=== PATIENT | male | born 1950 | race Caucasian/White ===

== ENCOUNTER → 2017-10-01 | Outpatient (CLI) | payer MEDICARE, OTHER ==
--- NOTE | 2017-10-03 09:53 | RADIOLOGY REPORT (SQ) ---
EXAM DESCRIPTION: MRI LT UPPER JOINT COMBO COMPLETED DATE/TIME: 10/01/2017 3:40 pm REASON FOR STUDY: PAIN IN LEFT SHOULDER S46.912A STRAIN UNSP MUSC/FASC/TEND AT SHLDR/UP ARM, LEFT A R M25.512 PAIN IN LEFT SHOULDER COMPARISON: None. TECHNIQUE: Multiplanar fat and fluid sensitive sequences precontrast including T1, T2 fat saturated or STIR. Initially, standard shoulder imaging was performed. Due to the presence of a mass on initi al review, the patient is brought back for further imaging to extend inferiorly along the left chest wall and proximal arm. This includes post contrast T1 fat saturated sequences after IV gadolinium ad ministration. CONTRAST TYPE AND DOSE: 15 mL Prohance. RENAL FUNCTION: GFR > 60. LIMITATIONS: None. FINDINGS: MASS SIGNAL CHARACTERISTICS: LOCATION: Along the lateral chest wall involving the distal pectoralis muscle. The lesion looks cent ered along the pectoralis/subcutaneous fat interface. The lesion abuts but does not clearly invade t he deltoid and biceps muscles and remains adjacent and medial to the cephalic vein. SIGNAL CHARACTERISTICS AND ENHANCEMENT PATTERN: Roughly ovoid configuration with internal low T1 damian ons. Septated appearance with heterogeneous but diffuse enhancement in the mass. MEASUREMENTS: Grossly 3.8 x 4.6 cm AP by transverse. 5.1 cm craniocaudal. MARROW SIGNAL IN ADJACENT BONES: Normal as assessed. OTHER SIGNIFICANT BONE, JOINT OR SOFT TISSUE FINDINGS: Mild AC arthropathy. Probable slap tear. Cuf f tendinosis. No full-thickness tear. Trace subcoracoid bursitis. IMPRESSION: 1. Heterogeneous mass along the distal pectoralis muscle with suspicious enhancement. W hile hematoma related to injury to the distal pectoralis would normally be in the differential, the l esion is worrisome for malignancy, possibly sarcoma. Further oncologic orthopedic management recomme nded. TECHNICAL DOCUMENTATION: JOB ID: [id number] [employer]- All Rights Reserved Reading location - IP/workstation name: [email or web address]
== END ==
LOC: RAD 12:08
PROVIDERS: ATTEND Orthopaedic Surgery
DX: S46.912A Strain of unspecified muscle, fascia and tendon at shoulder and upper arm level, left arm, initial encounter (principal); M25.512 Pain in left shoulder; X58.XXXA Exposure to other specified factors, initial encounter; Y93.9 Activity, unspecified; Y92.9 Unspecified place or not applicable
CPT/HCPCS: 82565; 73223; A9576

== ENCOUNTER 2017-10-11 10:03 | Day surgery (SDC) | payer MEDICARE, OTHER ==
[~2017-10-11 10:03] MED LIST: CEFAZOLIN 2 GM/D5W RTU 2 GM/50 ML RTUPB IV SCH
[2017-10-11 10:57] LABS: APPEARANCE,URINE SLIGHTLY-CLOUDY; BILIRUBIN,URINE NEGATIVE (NEGATIVE); COLOR,URINE YELLOW; GLUCOSE, URINE NEGATIVE (NEGATIVE); KETONES,URINE NEGATIVE (NEGATIVE); LEUKOCYTE ESTERASE,URINE NEGATIVE (NEGATIVE); NITRITE,URINE NEGATIVE (NEGATIVE); PROTEIN,URINE NEGATIVE (NEGATIVE); URINE SPECIFIC GRAVITY 1.014; UROBILINOGEN,URINE NEGATIVE mg/dL (<2.0)
[2017-10-11 11:09] LABS: HEMATOCRIT 46.5 % (37.9-51.0); HEMOGLOBIN 16.3 g/dL (13.5-17.0); MEAN CORPUSCULAR HEMOGLOBIN 32.6 pg (27.0-33.4); MEAN CORPUSCULAR VOLUME 93 fl (80-97); PLATELET COUNT 201 10^3/uL (150-450); RED BLOOD COUNT 4.98 10^6/uL (4.35-5.55); RED CELL DISTRIBUTION WIDTH 13.6 % (11.5-14.0); WHITE BLOOD COUNT 11.1 10^3/uL (4.0-10.5)
[2017-10-11 11:20] LABS: ANION GAP 13 (5-19); BLOOD UREA NITROGEN 14 mg/dL (7-20); CALCIUM 9.9 mg/dL (8.4-10.2); CARBON DIOXIDE 26 mmol/L (22-30); CHLORIDE 101 mmol/L (98-107); GLUCOSE 101 mg/dL (75-110); POTASSIUM 3.9 mmol/L (3.6-5.0); SODIUM 139.6 mmol/L (137-145)
--- NOTE | 2017-10-11 11:32 | RADIOLOGY REPORT (SQ) ---
EXAM DESCRIPTION: CHEST SINGLE VIEW COMPLETED DATE/TIME: 10/11/2017 10:59 am REASON FOR STUDY: preop COMPARISON: None. TECHNICAL DOCUMENTATION: JOB ID: [id number] Reading location - IP/workstation name: [email or web address]
[2017-10-11] MEDS ORDERED: ALBUTEROL SULFATE 0.083% NEB 2.5 MG/3 ML AMPUL NEB ONE (11:36)
[2017-10-11] MEDS ORDERED: BACITRACIN INJ 50,000 UNIT VIAL ONE (11:37)
[2017-10-11] MEDS ORDERED: POLYMYXIN B SULFATE INJ 500000 UNIT VIAL ONE (11:37)
[2017-10-11 11:57] LABS: ERYTHROCYTE SEDIMENTATION RATE 7 mm/hr (0-20)
[2017-10-11] MEDS ORDERED: HYDROMORPHONE HCL INJ/PF 2 MG/ML AMPULE ONE (12:16)
[2017-10-11] MEDS ORDERED: FENTANYL CITRATE INJ/PF 100 MCG/2 ML AMPUL ONE (12:17)
[2017-10-11] MEDS ORDERED: ACETAMINOPHEN 1,000 MG/100 ML RTUPB IV ONE (12:17)
[2017-10-11] MEDS ORDERED: PROPOFOL INJ 200 MG/20 ML VIAL IV ONE (12:17)
[2017-10-11] MEDS ORDERED: MIDAZOLAM 2 MG/2 ML INJ ONE (12:17)
[2017-10-11] MEDS ORDERED: LIDOCAINE 2% INJ-PF (20 MG/ML) 10 ML AMPUL ONE (12:29)
[2017-10-11] MEDS ORDERED: BUPIVACAINE HCL 0.5%-EPI 1:200000 INJ/PF 30 ML VIAL ONE (13:33)
--- NOTE | 2017-10-11 13:43 | Operative Report ---
Operative Report DATE OF SURGERY: 10/11/17 PREOPERATIVE DIAGNOSIS: Left pectoral soft tissue mass OPERATION: Resection left pectoral soft tissue mass SURGEON: CASANDRA LEIVA ANESTHESIA: GA TISSUE REMOVED OR ALTERED: Soft tissue mass to pathology, suture proximal medial ESTIMATED BLOOD LOSS: 50 PROCEDURE: With the patient supine Afrin table the left upper extremity forequarter prepped and draped in sterile fashion. An incision was made along the inferior aspect of the left pectoral muscle adjacent to the axilla. Sharp dissection was carried incision down to the perimuscular fascia. The perimuscular fascia is maintained as part of the specimen. The soft tissue dissection proceeds medially along the inferior aspect of the pectoralis major and then posteriorly. Its transected at the pectoralis insertion of the humerus. Medially its transected and what appears to be normal muscle which is proximal medial to the mass. Lastly the inferior aspect is resected through muscle tissue. The specimen is marked and sent to pathology for frozen section. The wound is irrigated with bulb lavage. Hemostasis obtained with electrocautery. The wound is closed in layers with interrupted Vicryl followed by sanchez. A sterile compressive dressings applied and patient's return to PACU in satisfactory condition.
[2017-10-11] MEDS ORDERED: MEPERIDINE HCL/PF INJ 25 MG/1 ML DISP.SYRIN IV PRN (13:46)
[2017-10-11] MEDS ORDERED: OXYCODONE-ACETAMINOPHEN 5-325 MG TABLET PO PRN ×2 (13:46)
[2017-10-11] MEDS ORDERED: FENTANYL CITRATE INJ/PF 100 MCG/2 ML AMPUL IV PRN ×3 (13:46)
[2017-10-11] MEDS ORDERED: DIPHENHYDRAMINE HCL 50 MG/ML VIAL IV PRN (13:46)
[2017-10-11] MEDS ORDERED: PROMETHAZINE HCL INJ 25 MG/1 ML VIAL IV PRN ×2 (13:46)
--- NOTE | 2017-10-11 13:47 | Discharge Summary ---
Discharge Summary (SDC) - Discharge Final Diagnosis: Left pectoral soft tissue mass Date of Surgery: 10/11/17 Discharge Date: 10/11/17 Condition: Good Treatment or Instructions: Use of left upper extremity as tolerated Prescriptions: Oxycodone HCl [Oxy-Ir 5 mg Tablet] 5 mg PO Q6HP PRN #40 tab PRN Reason: Referrals: ROSANNE MICHELLE MD [Primary Care Provider] - Discharge Diet: As Tolerated, Regular Respiratory Treatments at Home: Deep Breathing/Coughing Discharge Activity: Balance Activity w/Rest, No tub bath Home Care Assistance: None Needed Report the Following to Your Physician Immediately: Shortness of Breath, Fever over 101 Degrees, Drainage-Foul Smelling
[2017-10-11 16:53] VITALS: BP 153/78
[2017-10-11] MEDS ORDERED: ROCURONIUM BROMIDE INJ 50 MG/5 ML VIAL IV ONE (21:21)
[2017-10-11] MEDS ORDERED: GLYCOPYRROLATE 1 MG/5 ML SYRINGE ONE (21:21)
[2017-10-11] MEDS ORDERED: SUCCINYLCHOLINE CHLORIDE INJ 200 MG/10 ML VIAL ONE (21:21)
[2017-10-11] MEDS ORDERED: NEOSTIGMINE METHYLSULFATE 10 MG/10 ML VIAL ONE (21:21)
--- NOTE | 2017-10-11 22:07 | EKG REPORT ---
SEVERITY:- NORMAL ECG - SINUS RHYTHM : Confirmed by: Kym Car 11-Oct-2017 22:06:00
== END 2017-10-11 16:35 | disposition home or self-care (01) ==
LOC: OROUT 10:03
PROVIDERS: ATTEND Orthopaedic Surgery
DX: C49.3 Malignant neoplasm of connective and soft tissue of thorax (principal); R22.32 Localized swelling, mass and lump, left upper limb; F17.210 Nicotine dependence, cigarettes, uncomplicated; I10 Essential (primary) hypertension; E11.9 Type 2 diabetes mellitus without complications; Z79.899 Other long term (current) drug therapy; Z79.82 Long term (current) use of aspirin; Z79.84 Long term (current) use of oral hypoglycemic drugs; Z79.51 Long term (current) use of inhaled steroids
CPT/HCPCS: 36415; 85027; 85652; 80048; 81001; 83036; 88307 ×2; 71045; 93005; 93010; 94640; 21554; J2250; J3490 ×4; J3010; J0330; J2704; A9270; J0690; J0131; 400; J1170

== ENCOUNTER 2019-04-10 05:25 | Day surgery (SDC) | payer MEDICARE, OTHER ==
--- NOTE | 2019-04-03 10:05 | RADIOLOGY REPORT (SQ) ---
EXAM DESCRIPTION: CHEST PA/LATERAL COMPLETED DATE/TIME: 04/03/2019 9:48 am REASON FOR STUDY: PRE-OP COMPARISON: None. EXAM PARAMETERS: NUMBER OF VIEWS: two views TECHNIQUE: Digital Frontal and Lateral radiographic views of the chest acquired. RADIATION DOSE: NA LIMITATIONS: none FINDINGS: LUNGS AND PLEURA: No opacities, masses or pneumothorax. No pleural effusion. MEDIASTINUM AND HILAR STRUCTURES: No masses or contour abnormalities. HEART AND VASCULAR STRUCTURES: Heart normal size. No evidence for failure. BONES: No acute findings. HARDWARE: None in the chest. OTHER: No other significant finding. IMPRESSION: NO SIGNIFICANT RADIOGRAPHIC FINDING IN THE CHEST. TECHNICAL DOCUMENTATION: JOB ID: [id number] [employer]- All Rights Reserved Reading location - IP/workstation name: [email or web address]
[2019-04-03 10:15] LABS: ABSOLUTE EOSINOPHILS # (AUTO) 0.4 10^3/uL (0.0-0.6); ABSOLUTE LYMPHOCYTES (AUTO) 0.8 10^3/uL (0.5-4.7); ABSOLUTE MONOCYTES (AUTO) 0.6 10^3/uL (0.1-1.4); ABSOLUTE NEUT (AUTO) 4.6 10^3/uL (1.7-8.2); BASOPHILS % (AUTO) 0.7 % (0-2); EOSINOPHILS % (AUTO) 6.4 % (0-6); HEMATOCRIT 46.7 % (37.9-51.0); HEMOGLOBIN 16.4 g/dL (13.5-17.0); LYMPHOCYTES % (AUTO) 12.3 % (13-45); MEAN CORPUSCULAR HEMOGLOBIN 33.7 pg (27.0-33.4); MEAN CORPUSCULAR HGB CONC 35.1 g/dL (32.0-36.0); MEAN CORPUSCULAR VOLUME 96 fl (80-97); MONOCYTES % (AUTO) 9.3 % (3-13); PLATELET COUNT 159 10^3/uL (150-450); RED BLOOD COUNT 4.85 10^6/uL (4.35-5.55); RED CELL DISTRIBUTION WIDTH 14.1 % (11.5-14.0); SEGMENTED NEUTROPHILS % (AUTO) 71.3 % (42-78); TOTAL CELLS COUNTED % (AUTO) 100 %; WHITE BLOOD COUNT 6.5 10^3/uL (4.0-10.5)
[2019-04-03 10:39] LABS: ANION GAP 14 (5-19); BLOOD UREA NITROGEN 15 mg/dL (7-20); CALCIUM 10.1 mg/dL (8.4-10.2); CARBON DIOXIDE 26 mmol/L (22-30); CHLORIDE 92 mmol/L (98-107); GLUCOSE 89 mg/dL (75-110)
--- NOTE | 2019-04-03 13:29 | EKG REPORT ---
SEVERITY:- NORMAL ECG - SINUS RHYTHM : Confirmed by: Chapincito Guillaume MD 03-Apr-2019 13:28:26
[~2019-04-10 05:25] MED LIST changes: -CEFAZOLIN 2 GM/D5W RTU 2 GM/50 ML RTUPB IV SCH; +CEFAZOLIN SODIUM 2 GM in DEXTROSE 5%-WATER 100 ML IV PRN; +LACTATED RINGERS 1000 ML IV PRN; +LIDOCAINE 0.5% INJ-PF (5 MG/ML) 50 ML SDV SUBCUT PRN
[2019-04-10 06:46] LABS: POTASSIUM 3.6 mmol/L (3.6-5.0)
[2019-04-10] MEDS ORDERED: MIDAZOLAM 2 MG/2 ML INJ ONE (06:59)
[2019-04-10] MEDS ORDERED: FENTANYL CITRATE INJ/PF 100 MCG/2 ML AMPUL ONE (06:59)
[2019-04-10] MEDS ORDERED: PROPOFOL INJ 200 MG/20 ML VIAL IV ONE (06:59)
[2019-04-10] MEDS ORDERED: LIDOCAINE 2% INJ (20 MG/ML) 20 ML MDV ONE (07:00)
[2019-04-10] MEDS ORDERED: LIDOCAINE 1%/EPINEPHRINE INJ 20 ML VIAL ONE (07:18)
[2019-04-10] MEDS ORDERED: BUPIVACAINE HCL 0.25 % INJ/PF (2.5 MG/1 ML) 30 ML VIAL ONE (07:18)
[2019-04-10] MEDS ORDERED: TRANEXAMIC ACID INJ/PF 1,000 MG/10 ML SDV ONE ×2 (07:52→09:42)
[2019-04-10] MEDS: BUPIVACAINE INJ/PF LIPOSOME/PF 266 MG/20 ML SDV ONE ×2 (08:00→08:10)
[2019-04-10] MEDS ORDERED: ONDANSETRON HCL INJ/PF 4 MG/2 ML SDV IV PRN (08:01)
[2019-04-10] MEDS ORDERED: PROMETHAZINE HCL INJ 25 MG/1 ML VIAL IV PRN (08:01)
[2019-04-10] MEDS ORDERED: MEPERIDINE HCL/PF INJ 25 MG/1 ML DISP.SYRIN IV PRN (08:01)
[2019-04-10] MEDS ORDERED: MORPHINE SULFATE 10 MG/ML INJ IV PRN (08:01)
[2019-04-10] MEDS ORDERED: DIPHENHYDRAMINE HCL 50 MG/ML VIAL IV PRN (08:01)
[2019-04-10] MEDS ORDERED: FENTANYL CITRATE INJ/PF 100 MCG/2 ML AMPUL IV PRN ×3 (08:01)
[2019-04-10] MEDS ORDERED: OXYCODONE-ACETAMINOPHEN 5-325 MG TABLET PO PRN ×3 (08:01→08:45)
--- NOTE | 2019-04-10 08:22 | Operative Report ---
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 The previous incision is marked. The incision line is an elliptical incision that extends 2 cm distal and 2 cm proximal to the previous incision and with at least a 1 cm margin anteriorly and posteriorly. The dissection proceeds down and a oblique fashion to ensure that the entire previous incision is excised. The incision continues down and part of the pectoralis is taken, part of the Alex Casi condyle and conjoined tendon are taken, part of the deltoids taken, also part of the biceps at the myotendinous junction is taken. The specimen is then marked with sutures as above. The wound is irrigated with bulb lavage. Hemostasis obtained with electrocautery. A 10 Constantino-Little drain is placed in the bed of the wound. The wound is then closed using erupted Vicryl followed by Monocryl. Sterile compressive dressing is applied and the patient is returned to the PACU in [employer] condition.
[2019-04-10] MEDS ORDERED: ONDANSETRON HCL INJ/PF 4 MG/2 ML SDV ONE (08:43)
[2019-04-10] MEDS ORDERED: DEXAMETHASONE SOD PHOSPHATE INJ 4 MG/1 ML VIAL ONE (08:43)
[2019-04-10] MEDS ORDERED: RINGERS SOLUTION,LACTATED 1,000 ML IV PRN (08:45)
[2019-04-10] MEDS ORDERED: ALBUTEROL SULFATE HFA (90 MCG/PUFF) 200 PUFF/8.5 GM MDI IH ONE (08:45)
[2019-04-10] MEDS ORDERED: ONDANSETRON 4 MG TAB.RAPDIS PO PRN (08:46)
[2019-04-10] MEDS ORDERED: TRANEXAMIC ACID INJ/PF 1,000 MG/10 ML SDV IV ONE (10:00)
[2019-04-10] MEDS ORDERED: ROCURONIUM BROMIDE INJ 50 MG/5 ML VIAL IV ONE (10:45)
[2019-04-10] MEDS ORDERED: SUCCINYLCHOLINE CHLORIDE INJ 200 MG/10 ML VIAL ONE (10:45)
[2019-04-10 10:59] VITALS: BP 180/82
== END 2019-04-10 13:36 | disposition home or self-care (01) ==
LOC: OROUT 05:25 → 5 10:09 → OROUT 13:36
PROVIDERS: ATTEND Orthopaedic Surgery
DX: C49.3 Malignant neoplasm of connective and soft tissue of thorax (principal); Z85.831 Personal history of malignant neoplasm of soft tissue; J44.9 Chronic obstructive pulmonary disease, unspecified; E11.9 Type 2 diabetes mellitus without complications; E78.00 Pure hypercholesterolemia, unspecified; M10.9 Gout, unspecified; F17.210 Nicotine dependence, cigarettes, uncomplicated; I10 Essential (primary) hypertension; Z79.899 Other long term (current) drug therapy; Z79.82 Long term (current) use of aspirin; Z79.51 Long term (current) use of inhaled steroids; Z79.84 Long term (current) use of oral hypoglycemic drugs
CPT/HCPCS: 93005; 36415 ×2; 82962; 82947; 84132; 85025; 80048; 88307 ×2; 71046; 93010; 01610; 21557; J2250; J3490 ×3; J0690; J1100; J3010; J0330; J2405; J7060; J2704; A9270; C9290; 1610